=== PATIENT | female | born 1975 ===

== ENCOUNTER → 2021-08-03 | Day surgery (SDC) | payer OTHER ==
[~2021-08-03] VITALS: Ht 162.6 cm; Wt 49.9 kg
[2021-08-03 08:22] LABS: EOSINOPHIL 1.6 % (0-5); HCT 45.6 % (37.0-47.0); HGB 15.5 g/dl (12.5-16.0); LYMPHOCYTE 21.4 % (15-48); MCH 31.5 pg (25.0-31.0); MCV 92.7 fL (78.0-100.0); MONOCYTE 6.2 % (0-12); MPV 10.2 fL (6.0-9.5); NEUTROPHIL 69.6 % (41-80); NRBC 0; PLT 283 K/uL (150-400); RBC 4.92 M/uL (4.20-5.40); WBC 8.4 K/uL (4.0-10.5)
== END | disposition home or self-care (01) ==
LOC: FAS 07:17
PROVIDERS: Oral & Maxillofacial Surgery
DX: K02.9 Dental caries, unspecified (principal); K04.7 Periapical abscess without sinus; F17.200 Nicotine dependence, unspecified, uncomplicated
CPT/HCPCS: D7140 ×12; D7210; D7310; 36415; 85025; J1100; J2250; J2405; J2704; J3010; J7120